=== PATIENT | male | born 1990 | race Caucasian/White ===

== ENCOUNTER 2017-12-09 22:09 | Emergency (ER) | payer OTHER ==
[~2017-12-09] VITALS: Ht 170.2 cm; Wt 79.8 kg
[2017-12-09 22:43] LABS: BASOPHIL % 0.1 % (0-2); PLATELET COUNT 251 x10^3mcL (130-400); RED CELL DISTRIBUTION WIDTH 13.2 % (11.5-14.5)
[2017-12-09 22:54] LABS: CALCIUM 8.7 mg/dL (8.5-10.1); CHLORIDE SERUM 101 mmol/L (98-107); CREATININE SERUM 1.3 mg/dL (0.7-1.3); GFR1 > 60 mL/min; GLUCOSE SERUM 109 mg/dL (74-106); SODIUM SERUM 134 mmol/L (136-145)
[2017-12-09 22:59] LABS: ALBUMIN 3.9 g/dL (3.4-5.0); ALKALINE PHOSPHATASE 87 U/L (46-116); ALT/SGPT 98 U/L (16-63); AST/SGOT 53 U/L (15-37); BILIRUBIN TOTAL 1.33 mg/dL (0.20-1.00); LIPASE 160 IU/L (73-393); TOTAL PROTEIN, SERUM 7.6 g/dL (6.4-8.2)
[2017-12-09 23:51] VITALS: BP 127/73
== END 2017-12-09 23:51 | disposition home or self-care (01) ==
LOC: ED 22:09
PROVIDERS: Emergency Medicine
DX: K52.9 Noninfective gastroenteritis and colitis, unspecified (principal)
CPT/HCPCS: J1200; J2765; J7030